=== PATIENT | male | born 1985 | race Caucasian/White ===

== ENCOUNTER 2020-03-09 07:16 | Emergency (ER) | payer OTHER, SELFPAY ==
[2020-03-09 07:20] VITALS: BP 125/100; PULSE 82; RESP 18; TEMP 36.6; O2SAT 98
[2020-03-09] MEDS: LIDOCAINE HCL 1% LOCAL INJ 20 ML VIAL (07:40)
--- NOTE | 2020-03-09 08:05 | ED.WOUNDLAC ---
HPI - Wound/Laceration General Stated Complaint: cut hand Time Seen by Provider: 03/09/20 07:30 Source: patient Mode of arrival: ambulatory Limitations: no limitations History of Present Illness HPI narrative: Previously well 34-year-old male comes in today complaining of a laceration on his right hand. He states he cut it on a paper shredder at work this am. The laceration is between his index and long fingers. He denies any numbness or decreased range of motion. He does not recall his last tetanus shot. Onset (ago): hour(s) (1) Extremity Location: Right: hand Place: work Context: accidental and sharp object use Associated symptoms: pain Treatments prior to arrival: bandage Related Data Home Medications Medication Instructions Recorded Confirmed No Home Medications 03/09/20 03/09/20 Allergies Allergy/AdvReac Type Severity Reaction Status Date / Time No Known Allergies Allergy Verified 03/09/20 08:16 Review of Systems ENT: Denies dizziness Cardiovascular: Cardiovascular: Denies chest pain and Denies radiating jaw, neck or arm pain Respiratory: Respiratory: Denies cough, Denies dyspnea and Denies wheezing Gastrointestinal: Gastrointestinal: Denies abdominal pain, Denies nausea and Denies vomiting Integumentary/Breasts: Skin/Breast: Denies pruritus, Denies erythema and Denies rash Hematologic/Lymphatic: Hematologic/Lymphatic: Denies easy bleeding and Denies easy bruising Allergic/Immunologic: Allergic/Immunologic: Denies lip swelling and Denies wheezing [facility] Social History Social History (Updated 03/09/20 @ 08:13 by Tobias Hastings MD) Smoking status: Never smoker Alcohol intake: current Alcohol use details: Occasional Substance use: never Living arrangements: with family Exam Const: Other: Mild acute distress Eyes: Conjunctivae: conjunctivae normal Pupils: Equal, round and reactive pupils present EOM: EOMs intact bilaterally Skin: General skin exam: normal color, no jaundice and no pallor Rashes: no rashes Other: 3 cm interdigital laceration between the index and long fingers of the right hand. It is linear and there are no foreign bodies. Neuro: General: patient oriented x3, moves all extremities, no focal motor deficits and CN's II-XI intact bilaterally Speech: normal speech Other: Distal neural exam of the hand is intact Extrem: General: normal to inspection and no clubbing, cyanosis or edema Other: extensor and flexor tendons of the index and long fingers of the right hand are intact to challenge. Psych: Appearance: grossly normal and well kempt Mental Status: mental status grossly normal Affect: normal affect Attitude: cooperative Thought content: Yes Normal thought content present Procedures Laceration Laceration 1: Date: 03/09/20 Time: 07:50 Site: hand Side (If applicable): right Size (cm): 3 Description: linear Depth: simple, single layer Local Anesthetic: lidocaine 1% Amount of anesthesia used (mL): 4 Pre-repair: wound explored, irrigated extensively and deep structures intact ====== Skin Level ====== Skin layer closed with: nylon Size (cm): 4-0 Number of sutures: 6 Technique: simple, interrupted ====== Subcutaneous Layer ====== ====== Muscle Layer ====== ====== Tendon Layer ====== Discharge Plan Discharge Clinical Impression: Laceration Patient Disposition: Home, Self-Care Condition: Stable Instructions: Care For Your Stitches (ED), Laceration (ED) Additional Instructions: Keep wound clean and dry. Six sutures to come out in 14 days. Prescriptions: No Action No Home Medications RF: 0 Follow-up/Referrals: PHYSICIAN NOT ON STAFF,NONSTAFF [Primary Care Provider] - Stand Alone Forms: Work/School Release IP Time of Disposition: 08:18
[2020-03-09] MEDS: TETANUS,DIPHTHERIA,AC PERTUSSIS ADULT 0.5 ML (ADACEL) IM (08:39)
[2020-03-09 08:42] VITALS: BP 132/84; PULSE 100; RESP 20; O2SAT 97
== END 2020-03-09 08:49 | disposition home or self-care (01) ==
PROVIDERS: Emergency Provider Emergency Medicine
DX: S61.411A Laceration without foreign body of right hand, initial encounter (principal); W45.8XXA Other foreign body or object entering through skin, initial encounter
CPT/HCPCS: 12002; 90471; 90715; 99282